=== PATIENT | female | born 1970 | race Caucasian/White ===

== ENCOUNTER 2017-12-18 05:49 | Observation (INO) | payer OTHER ==
--- NOTE | 2017-12-16 17:24 | GHP ---
[f rep st] PREOP HISTORY AND PHYSICAL DATE OF ADMISSION: 12/18/2017 DATE OF PLANNED PROCEDURE: PLANNED PROCEDURE: Total laparoscopic hysterectomy with bilateral salpingectomy, possible abdominal hysterectomy, plus cystoscopy. INDICATIONS: Patient is a 47-year-old 4, para 3-0-1-3, who presented to us for her annual ex am in 2018, with complaint of intermittent copious vaginal discharge. She has a history of menorrhag ia, so she had a Mirena in place and her IUD is due for removal. During her exam, an enlarged fibroi d uterus was noted. Since that time, patient has become more aware of the persistent pelvic pressure that she is experiencing and that she was not aware of what was causing the symptoms previously and is requesting definitive therapy. Management options were reviewed with the patient. Decision was m preet to proceed with a total laparoscopic hysterectomy with bilateral salpingectomy, possible abdomina l hysterectomy due to her enlarged fibroid uterus and history of section x3. PAST MEDICAL HISTORY: Patient's medical history is uncomplicated. MEDICATIONS: Claritin, Flonase, Excedrin, all p.r.n., and Mirena IUD. PAST SURGICAL HISTORY: section x3, D and C x1, LEEP excision of cervix, tonsillectomy, repa ir of pyloric stenosis. ALLERGIES: Codeine, which causes nausea. SOCIAL HISTORY: Patient drinks alcohol rarely. She denies tobacco or drug use. 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 FAMILY MEDICAL HISTORY: Noncontributory. OBSTETRIC/GYNECOLOGIC HISTORY: Menarche age 15. She really spots now due to her Mirena IUD. She is a 4, para 3-0-1-3. She has had 3 sections. The first one was done for arrest of d escent after 4 hours of pushing. The remainder of the C-sections were done due to elective repeat C- section. She had a tubal ligation with her last . She had a D and C for a missed AB. The patient does have a remote history of abnormal Pap smear. She had a LEEP excision in 1994. Repeat P aps have all been negative. REVIEW OF SYSTEMS: 10-point review of systems is negative with the exception of the above-mentioned pertinent positives and she has minimal spotting due to the Mirena. She does have constant pelvic pr essure. PHYSICAL EXAMINATION: VITAL SIGNS: Stable. GENERAL APPEARANCE: Alert and oriented x3. NECK: Mob ile and supple. MUSCULOSKELETAL: Grossly intact. PSYCH: Grossly intact. HEART: Heart rate is re gular. LUNGS: Clear to auscultation bilaterally. ABDOMEN: Soft, nondistended, nontender. No orga nomegaly is noted. EXTREMITIES: Reveal no calf tenderness or edema. PELVIC: Reveals a mobile enla rged uterus with no adnexal masses. DIAGNOSTIC DATA: Pelvic ultrasound shows the uterus measuring 9.5 x 8 x 9.7 cm with a normal endomet rium and an IUD in place and a left intramural 7.4 x 6.4 x 9 cm fibroid. Ovaries had a simple left c yst. The left right ovary was normal. ASSESSMENT/PLAN: A 47-year-old 4, para 3-0-1-3 who has symptomatic fibroid uterus requesting definitive therapy. She will undergo a total laparoscopic hysterectomy with bilateral salpingectomy and possible open hysterectomy, followed by cystoscopy. Risks and benefits have been reviewed with the patient, and patient has been properly consented. /[id number]/MODL
[~2017-12-18 05:49] MED LIST: LIDOCAINE 1% 2 ML INJ ID PRN; LR 1,000 ML IV ONE; ceFAZolin 2 GM/DEXTROSE 100 ML IV ONE
--- NOTE | 2017-12-18 07:01 | PDANEPAE ---
ANE History of Present Illness laparoscopic hysterectomy ANE Past Medical History - Cardiovascular History Hx Hypertension: No Hx Arrhythmias: No Hx Chest Pain: No Hx Coronary Artery / Peripheral Vascular Disease: No Hx CHF / Valvular Disease: No Hx Palpitations: No - Pulmonary History Hx COPD: No Hx Asthma/Reactive Airway Disease: No Hx Recent Upper Respiratory Infection: No Hx Oxygen in Use at Home: No Hx Sleep Apnea: No Sleep Apnea Screening Result - Last Documented: Negative - Neurologic History Hx Cerebrovascular Accident: No Hx Seizures: No Hx Dementia: No - Endocrine History Hx Diabetes: No Hypothyroid: No Hyperthyroid: No Obesity: no - Renal History Hx Renal Disorders: No - Liver History Hx Hepatic Disorders: No - Neurological & Psychiatric Hx Hx Neurological and Psychiatric Disorders: Yes Neurological / Psychiatric History Comment: Raynaud's syndrome - Cancer History Hx Cancer: No - Congenital Disorder History Hx Congenital Disorders: No - GI History GERD: no Hx Gastrointestinal Disorders: No - Other Health History Other Health History: random joint swelling - Chronic Pain History Chronic Pain: Yes (back pain) - Surgical History Prior Surgeries: s/p 3 c/s under BRITANY and SAB,. tonsillectomy ANE Review of Systems Review of Systems: - Exercise capacity METS (RN): 5 METS ANE Patient History - Allergies Allergies/Adverse Reactions: codeine [Codeine] Allergy (Intermediate, Verified 12/06/17 16:03) Vomiting - Home Medications Home Medications: Acetaminophen/ASA/Caffeine [Excedrin Tablet (*)] 1 each PO HS PRN 12/05/17 [ Last Taken 12/15/17] Fluticasone Nasal [Flonase Nasal Glover (RX)] 1 sprays NASAL DAILY PRN 12/05/17 [ Last Taken 12/04/17] Herbals/Supplements -Info Only 1 ea PO DAILY 12/05/17 [Last Taken 12/08/17] Ibuprofen [Motrin (*)] 200 mg PO DAILY PRN 12/05/17 [Last Taken 12/08/17] Loratadine [Claritin 10 mg] 10 mg PO DAILY PRN 12/05/17 [Last Taken 12/17/17 09: 00] diphenhydrAMINE [Benadryl 25 MG (*)] 25 mg PO HS PRN 12/05/17 [Last Taken 00:00] - NPO status NPO Since - Liquids (Date): 12/17/17 NPO Since - Liquids (Time): 00:00 NPO Since - Solids (Date): 12/17/17 NPO Since - Solids (Time): 22:00 - Smoking Hx Smoking Status: Never smoked - Family Anes Hx Family Hx Anesthesia Complications: none ANE Labs/Vital Signs - Vital Signs Blood Pressure: 123/80 Heart Rate: 62 Respiratory Rate: 18 O2 Sat (%): 94 Height: 167.64 cm Weight: 63.503 kg ANE Physical Exam - Airway Neck exam: FROM Mallampati Score: Class 1 Mouth exam: normal dental/mouth exam - Pulmonary Pulmonary: clear to auscultation - Cardiovascular Cardiovascular: regular rate and rhythym - ASA Status ASA Status: II
[2017-12-18] MEDS ORDERED: SCOPOLAMINE HYDROBROMIDE 1 MG/3 DAYS PATCH TD ONE ×2 (07:04→07:20)
[2017-12-18] MEDS ORDERED: MIDAZOLAM 2 MG/2 ML VIAL IVP ONE (07:04)
[2017-12-18] MEDS ORDERED: PROPOFOL 200 MG/20 ML VIAL ONE ×3 (07:10→08:57)
[2017-12-18] MEDS ORDERED: fentaNYL 250 MCG/5 ML INJ ONE (07:10)
[2017-12-18] MEDS ORDERED: BUPIVACAINE/EPI 0.5% 30 ML SDV ONE (07:13)
[2017-12-18] MEDS ORDERED: MIDAZOLAM 2 MG/2 ML VIAL ONE (07:20)
--- NOTE | 2017-12-18 07:27 | PDHPUP ---
History & Physical Update H&P update statement: This history and physical update is based on an assessment of the patient which was completed after admission or registration (within 24 hours), but prior to the surgery/procedure. H&P update: H&P reviewed & patient examined, no change in patient's condition since H&P completed
[2017-12-18] MEDS ORDERED: PHENYLEPHRINE HCL 100 MCG/ML SYR ONE (07:50)
[2017-12-18] MEDS ORDERED: ePHEDrine SULFATE 25 MG/5 ML SYR ONE (07:50)
[2017-12-18] MEDS ORDERED: ONDANSETRON 4 MG/2 ML VIAL ONE (09:07)
[2017-12-18] MEDS ORDERED: METHYLENE BLUE 0.5% 50 MG/10 ML AMP ONE (09:15)
[2017-12-18] MEDS ORDERED: HYDROmorphONE/DILAUDID 1 MG/ML INJ IVP PRN (09:42)
[2017-12-18] MEDS ORDERED: ONDANSETRON 4 MG/2 ML VIAL IVP PRN ×2 (09:42→09:52)
[2017-12-18] MEDS ORDERED: NALOXONE HCL 0.4 MG/ML INJ IVP PRN (09:42)
[2017-12-18] MEDS ORDERED: LACTULOSE 20 GM/30 ML UDCUP PO PRN (09:52)
[2017-12-18] MEDS ORDERED: MAGNESIUM HYDROXIDE 30 ML UDCUP PO PRN (09:52)
[2017-12-18] MEDS ORDERED: HYDROCODONE/APAP 5/325 TAB PO PRN (09:52)
[2017-12-18] MEDS ORDERED: POLYETHYLENE GLYCOL 3350 17 GM PKT PO PRN (09:52)
[2017-12-18] MEDS ORDERED: BISACODYL 10 MG SUPP PR PRN (09:52)
--- NOTE | 2017-12-18 09:59 | POSTOPPROG ---
Post Op Note Date of Operation: 12/18/17 Surgeon: Sandra Amador Summer Law Clerk: Raffi Velez Anesthesiologist: josette Anesthesia: GET(General Endotracheal) Pre-op Diagnosis: symptomatic fibroids Post-op Diagnosis: same Procedure: total laparoscopic hysterectomy, bilateral salpingectomy, cystoscopy Findings: enlarged fibroid uterus, normal ovaries Inf/Abcess present in the surg proc area at time of surgery?: No EBL: 50-100 Specimen(s): uterus, bilateral tubes
[2017-12-18] MEDS ORDERED: LR 1,000 ML IV SCH (10:00)
[2017-12-18] MEDS ORDERED: fentaNYL 100 MCG/2 ML INJ ONE (10:19)
--- NOTE | 2017-12-18 10:19 | POSTANESTH ---
Post Anesthetic Evaluation Cardiovascular Status: Normal, Stable Respiratory Status: Normal, Stable Level of Consciousness/Mental Status: Can Participate in Eval Pain Control: Adequate, Prn Tx Ordered Nausea/Vomiting Control: Adequate, Prn Tx Ordered Complications Possibly Related to Anesthesia: None Noted
[2017-12-18] MEDS: fentaNYL 100 MCG/2 ML INJ IVP PRN ×3 (10:23→10:59)
[2017-12-18] MEDS: KETOROLAC 30 MG/1 ML SDV IVP SCH ×4 (15:44→22:02)
[2017-12-18] MEDS ORDERED: ACETAMINOPHEN 500 MG TAB PO PRN (17:21)
--- NOTE | 2017-12-18 17:21 | SOAPPROG ---
SOAP Progress Note Assessment/Plan: Assessment: pod# 0 s/p TLH BS uncomplicated post operative course Plan: increase activity antoni guillaume when ambulating change pain meds to percocet per patient request 12/18/17 17:20 Objective: Vital Signs Temp Pulse Resp BP Pulse Ox 36.5 C 62 16 125/76 H 100 12/18/17 17:18 12/18/17 17:18 12/18/17 17:18 12/18/17 17:18 12/18/17 17:18 12/17/17 12/18/17 12/19/17 05:59 05:59 05:59 Intake Total 1575 Output Total 480 Balance 1095 Physical Exam - Physical Exam General Appearance: WD/WN, alert, no apparent distress Neck: non-tender, full range of motion Respiratory: chest non-tender, lungs clear, normal breath sounds Cardiac/Chest: normal peripheral pulses, regular rate, rhythm Abdomen: normal bowel sounds, non-tender, soft Skin: normal color, warm/dry Lymphatic: no adenopathy, axilla node tender (R) Extremities: normal range of motion, non-tender, normal inspection, normal capillary refill Neuro/Psych: no motor/sensory deficits, alert, normal mood/affect, oriented x 3 ICD10 Worksheet Patient Problems: Problems Problem Status Onset Fibroids Acute
--- NOTE | 2017-12-18 18:09 | GOP ---
[f rep st] OPERATIVE REPORT DATE OF OPERATION: 12/18/2017 SURGEON: Sandra Amador DO FINANCIAL ASSISTANCE SPECIALIST: Raffi Verma MD ANESTHESIA: General endotracheal tube. ANESTHESIOLOGIST: Jeff Gómez MD PREOPERATIVE DIAGNOSIS: Symptomatic fibroid uterus. POSTOPERATIVE DIAGNOSIS: Symptomatic fibroid uterus. PROCEDURE PERFORMED: Total laparoscopic hysterectomy with bilateral salpingectomy. FINDINGS: 1. Exam under anesthesia: Enlarged, anteverted, mobile uterus with no adnexal masses. 2. Laparoscopic findings: Fibroid uterus rotated to the patient's right. Normal ovaries, fallopian tubes, status post bilateral salpingectomy. SPECIMENS: Bilateral fallopian tubes, uterus, and cervix. ESTIMATED BLOOD LOSS: 50 cc. INDICATIONS: Patient is a 47-year-old, para 3 who was diagnosed with a fibroid uterus several months ago. Patient has noted increased pelvic pressure and is requesting definitive therapy. Risks and b enefits have been reviewed with the patient. Decision was made to proceed with a total laparoscopic hysterectomy. Patient was properly consented. DESCRIPTION OF PROCEDURE: Patient was taken to the operating room with intravenous fluids in place. She was given 2 g of Ancef intravenously preoperatively. She was then placed on the operating room table in the dorsal supine position, where general anesthesia was obtained. She was then repositione d into the dorsal lithotomy position with the Yellofin stirrups and then prepped and draped in the no rmal sterile fashion. A Joshi catheter was then placed. Exam under anesthesia revealed a mobile, anteverted uterus with no adnexal masses. The uterus was en larged in size. A speculum was then placed in the patient's vagina and a single-tooth tenaculum was used to grasp the anterior lip of the cervix. The cervix was sounded to 12 cm. A large KACY ring an d the long tip was inserted into the uterus. After testing the balloons, the uterus was easily manip ulated. Attention was then turned to the patient's abdomen where a 5 mm skin incision was then made in the pa tient's umbilicus. A 5 mm trocar was then advanced into the patient under direct visualization with the laparoscope. The abdomen was then insufflated with CO2 gas until an adequate pneumoperitoneum wa s achieved. The area underneath the trocar insertion site was found to be unremarkable. A 5 mm skin incision was then made in the patient's right lower quadrant and a 5 mm trocar was advanced into the patient's abdomen under direct visualization. A 10 mm incision was then made in the patient's left lower quadrant and a trocar was advanced into the patient's abdomen under direct visualization. A ca ji was then placed in the patient's lower trocar and the umbilical trocar was found to be unremarka ble. The camera was then replaced into the patient's umbilical trocar. The uterus was noted to be mobile, is noted to be rotated to the patient's right side, and the omentu m was adhered to the posterior wall of the uterus. A LigaSure was then inserted and the omentum was removed from the patient's posterior wall of the uterus. Hemostasis was assured. A left salpingecto my was performed and the tube was withdrawn through the 10 mm trocar. The left utero-ovarian ligamen t was then clamped, cauterized, and transected with the LigaSure. The left round ligament was then c lamped, cauterized, and transected with the LigaSure, and the broad ligament was clamped, cauterized, and transected. The bladder flap was created anteriorly. Attention was then turned to the patient's right side, where a right salpingectomy was performed in a similar fashion as the left side and the left utero-ovarian ligament clamped, cauterized, and transe cted, as well as the round ligament, and the broad ligament. The bladder flap was created anteriorly and the bladder was dissected well away from the colpotomy ring. The uterine arteries were then ske letonized, clamped, cauterized, and transected, and there was good blanching of the uterus noted. Th e colpotomy was made with the LigaSure monopolar in a circumferential fracture fashion. The uterus w as then drawn into the cervix and the KACY uterine manipulator was then removed without difficulty. Tenaculums were then used to provide traction on the uterus. The cervix was bivalved and a chunk of the uterus was then removed and the remainder of the uterus was then able to be removed through the v agina without difficulty. A glove and a sponge were then inserted into the vagina and pneumoperitone um was well maintained. The cuff was found to be hemostatic. The 0 Vicryl V-Loc suture was then use d to close the vaginal cuff in a running fashion. The cuff remained hemostatic. We went all the way across and then back retirement using that V-Loc suture. Ureters were noted to be peristalsing. The c uff was hemostatic. The pedicles were hemostatic. The 10 mm trocar was then removed from the patien t's abdomen and the fascial closure device was used to close the fascia with an 0 Vicryl stitch. CO2 gas was expressed from the patient's abdomen, and the skin incisions were then closed with 4-0 Monoc ryl. The patient had been given methylene blue and a cystoscopy was performed. Bilateral ureteral jets we re noted to shoot with blue urine into the bladder. Instruments were then removed from the patient's bladder and vagina, and the patient was then easily awoken from anesthesia. Sponge count was correc t. The patient was transported to recovery room in stable condition. /[id number]/MODL
[2017-12-18] MEDS: SIMETHICONE 80 MG TAB CHEW PO SCH ×2 (19:26→22:02)
[2017-12-18] MEDS: SENNOSIDES/DOCUSATE SODIUM TAB PO SCH (22:02)
[2017-12-18] MEDS: OXYCODONE/APAP 5/325 TAB PO PRN (22:02)
[2017-12-19] MEDS: OXYCODONE/APAP 5/325 TAB PO PRN (04:33)
[2017-12-19] MEDS: KETOROLAC 30 MG/1 ML SDV IVP SCH ×2 (04:34→10:23)
[2017-12-19] MEDS: SIMETHICONE 80 MG TAB CHEW PO SCH (10:24)
[2017-12-19] MEDS: SENNOSIDES/DOCUSATE SODIUM TAB PO SCH (10:24)
[2017-12-19 10:34] VITALS: BP 102/71
--- NOTE | 2017-12-19 12:08 | SOAPPROG ---
SOAP Progress Note Assessment/Plan: Assessment: pod# 1 s/p TLH BS uncomplicated post operative course Plan: discharge instructions 12/19/17 12:06 Subjective: patient is doing well. pain is well controlled with percocet. passing gas. voiding without difficulty. scant vaginal bleeding. ready to go home. ambulating. Objective: Vital Signs Temp Pulse Resp BP Pulse Ox 36.5 C 65 16 102/71 99 12/19/17 08:00 12/19/17 08:00 12/19/17 08:00 12/19/17 08:00 12/19/17 08:00 Laboratory Results 12/19/17 04:53 12/18/17 12/19/17 12/20/17 05:59 05:59 05:59 Intake Total 2325 Output Total 2980 Balance -655 Physical Exam - Physical Exam General Appearance: WD/WN, alert Neck: non-tender, full range of motion, supple Respiratory: chest non-tender, lungs clear, normal breath sounds Cardiac/Chest: normal peripheral pulses, regular rate, rhythm Abdomen: normal bowel sounds, non-tender, soft Skin: normal color, warm/dry Extremities: normal range of motion, non-tender, normal inspection, normal capillary refill Neuro/Psych: no motor/sensory deficits, alert, normal mood/affect, oriented x 3 ICD10 Worksheet Patient Problems: Problems Problem Status Onset Fibroids Acute
[2017-12-19] MEDS ORDERED: IBUPROFEN 600 MG TAB PO SCH (16:00)
== END 2017-12-19 12:30 | disposition home or self-care (01) ==
LOC: F3E 05:49 → FOB 11:34
PROVIDERS: ADMIT Obstetrics & Gynecology; ATTEND Obstetrics & Gynecology
PROC: 0UT7FZZ Resection of Bilateral Fallopian Tubes, Via Natural or Artificial Opening With Percutaneous Endoscopic Assistance (ICD-10-PCS; principal; 2017-12-18 07:15)
PROC: 0UT9FZZ Resection of Uterus, Via Natural or Artificial Opening With Percutaneous Endoscopic Assistance (ICD-10-PCS; principal; 2017-12-18 07:15)
DX: D25.9 Leiomyoma of uterus, unspecified (principal); R10.2 Pelvic and perineal pain; I73.00 Raynaud's syndrome without gangrene
CPT/HCPCS: 58571; G0378; J0690; J1885; J2250; J2270; J2370; J2405; J2704; J3010; Q9968